=== PATIENT | female | born 1970 | race Caucasian/White ===

== ENCOUNTER → 2022-03-12 | Outpatient (CLI) | payer OTHER ==
[2022-03-12 14:13] LABS: Basophils # (A) 0.06 X 10*3/uL (0.00-0.10); Basophils % (A) 0.8 %; Eosinophils # (A) 0.16 X 10*3/uL (0.04-0.35); HCT 38.4 % (37.2-46.3); HGB 11.4 g/dL (12.0-15.0); Immature Grans, Automated 0.3 %; Lymphocytes # (A) 2.08 X 10*3/uL (0.90-5.00); Lymphocytes % (A) 26.4 %; MCH 26.9 pg (27.0-32.0); MCHC 29.7 g/dL (32.0-37.0); MCV 90.6 fL (80.0-97.0); Mean Platelet Volume 10.1 fL (9.5-12.2); Monocytes # (A) 0.46 X 10*3/uL (0.20-1.00); Monocytes % (A) 5.8 %; NRBC Per 100 WBC 0 /100 WBCS (0.0-0.0); Neutrophils # (A) 5.09 X 10*3/uL (1.80-7.70); Neutrophils % (A) 64.7 %; Platelet Count 271 X 10*3/uL (140-440); RBC 4.24 X 10*6/uL (4.10-5.20); RDW 13.8 % (11.5-14.5); WBC 7.87 X 10*3/uL (4.50-10.00)
[2022-03-12 18:26] LABS: Follicle Stimulating Hormone 4.1 mIU/mL
== END | disposition home or self-care (01) ==
LOC: LABPAT 10:27
PROVIDERS: ATTEND Obstetrics & Gynecology
DX: Z01.812 Encounter for preprocedural laboratory examination (principal)
CPT/HCPCS: 82670; 83001; 85025; 93005

== ENCOUNTER 2022-03-25 05:57 | Day surgery (SDC) | payer OTHER ==
[2022-03-21 11:57] VITALS: BMI 31.6
--- NOTE | 2022-03-22 17:13 | P.HPOB ---
History of Present Illness H&P Date: 03/22/22 Chief Complaint: Dysfunctional uterine bleeding, endometrial thickening on u ltrasound This patient is a pleasant 51 yr female who was referred to me for evaluation of irregular, heavy menstrual bleeding. Ultrasound demonstrated endometrial thickening to 1.7cm. She now presents for further evaluation by hysteroscopy and D&C. Review of Systems Genitourinary: Reports as per HPI, Reports abnormal vaginal bleeding Past Medical History Past Medical History: GERD/Reflux Additional Past Medical History / Comment(s): irregular and continual bleeding/clots with menses-none since 03-01-22. History of Any Multi-Drug Resistant Organisms: None Reported Past Surgical History: Adenoidectomy, Section, Cholecystectomy Additional Past Surgical History / Comment(s): c-sect x2 Past Anesthesia/Blood Transfusion Reactions: No Reported Reaction Past Psychological History: No Psychological Hx Reported Smoking Status: Never smoker Past Alcohol Use History: None Reported Past Drug Use History: None Reported - Past Family History Mother Family Medical History: Cancer Additional Family Medical History / Comment(s): breast Father Family Medical History: Cancer Additional Family Medical History / Comment(s): nonHodgekin's lymphoma Medications and Allergies Home Medications Medication Instructions Recorded Confirmed Type Omeprazole 20 mg PO QAM 03/21/22 03/21/22 History Allergies Allergy/AdvReac Type Severity Reaction Status Date / Time No Known Allergies Allergy Verified 03/21/22 11:48 Exam - OBG Physical Exam Abdomen: bowel sounds normal, no diffuse tenderness, no bruit present, no guarding noted, no hepatomegaly, no splenomegaly, no mass Vulva: both: normal Vagina: normal moisture, no discharge Cervix: no lesion, no discharge Uterus: normal size Assessment and Plan Assessment: This is a pleasant 51 yr female with dysfunctional uterine bleeding and endometrial thickening on pelvic ultrasound. Plan is hysteroscopy and dilation with curettage. I have discussed this surgery and risks with the patient including: infection, bleeding, and possible uterine perforation. All of her questions were answered and a written consent obtained. (1) Dysfunctional uterine bleeding Status: Acute Code(s): N93.8 - OTHER SPECIFIED ABNORMAL UTERINE AND VAGINAL B LEEDING SNOMED Code(s): 36624988143068 (2) Endometrial thickening on ultrasound Status: Acute Code(s): R93.89 - ABNORMAL FINDINGS ON DX IMAGING OF OTH BODY STRUCTURES SNOMED Code(s): 014963833
[~2022-03-25 05:57] MED LIST: DEXAMETHASONE SOD PHOSPHATE 4 MG/ML 1 ML VIAL IV ONE; HYDROmorphone 0.5 MG/0.5 ML SYRINGE IVP PRN; LACTATED RINGERS 1,000 ML IV SCH; LIDOCAINE 1% (10MG/ML) FOR IV START INTRADERMA PRN; ONDANSETRON 4 MG/2 ML VIAL IVP ONE; Pre Op ABX Message 1 EACH MISC MISCELLANE ONE; SCOPOLAMINE 1 MG/72 HR PATCH TRANSDERM ONE
[2022-03-25] MEDS ORDERED: fentaNYL (PF) 50 MCG/ML 2 ML AMP ONE (06:50)
[2022-03-25] MEDS ORDERED: MIDAZOLAM 2 MG/2 ML VIAL ONE (06:50)
[2022-03-25] MEDS ORDERED: LIDOCAINE 2% INJ 20 MG/ML (2 ML VIAL) ONE (06:50)
[2022-03-25] MEDS ORDERED: KETOROLAC 15 MG/ML 1 ML VIAL ONE (06:50)
[2022-03-25] MEDS ORDERED: SUCCINYLCHOLINE CHLORIDE 200 MG/10 ML VIAL IV ONE (06:50)
[2022-03-25] MEDS ORDERED: PROPOFOL 10 MG/ML 20 ML VIAL IV ONE (06:50)
--- NOTE | 2022-03-25 07:24 | P.OP ---
Date of Procedure: 03/25/22 Preoperative Diagnosis: #1: Dysfunctional uterine bleeding. #2: Thickened endometrium on ultrasound Postoperative Diagnosis: Same Procedure(s) Performed: #1: Hysteroscopy. 2: Dilation and curettage Anesthesia: [facility] Surgeon: Campbell Nichols Estimated Blood Loss (ml): 20 Urine output (ml): 20 Pathology: other (Uterine curettings) Condition: stable Disposition: PACU Indications for Procedure: Please see dictated H&P for intimate details of this patient's admission. Brief summary this is a pleasant 51-year-old female who was referred to [facility] for evaluation of dysfunctional bleeding and thickening of the endometrium on transvaginal ultrasound. Patient is presenting for hysteroscopy D&C for further evaluation. Patient understands this surgery and risks and risks of infection, bleeding, possible uterine perforation. All the patient's questions are answered and a written consent is obtained. Operative Findings: This patient had a normal-appearing endometrial cavity without evidence of polyps or fibroids Description of Procedure: This patient is taken to the operative room where she is laid in supine position. She undergoes general endotracheal anesthesia without incident. With an adequate level of anesthesia she's placed in dorsal lithotomy position. She has a vaginal perineal prep and drape. Examination under anesthesia shows a mid position uterus of normal size. Weighted speculum placed in posterior vagina. Bladder is drained for 20 mL of clear urine. I grabbed the anterior lip of the cervix with an Allis clamp. The uterus is gently sounded to 8.5 cm. Gentle dilation is then done to allow the hysteroscope easily and uterine cavity. Hysteroscopy is performed and the uterine cavity endocervix are visualized. I see no evidence of a fibroid or polyp. With this done the hysteroscope was removed. Cervix is dilated more to allow the polyp forceps into the endometrial cavity. These are placed no polyp was removed. A vigorous but gentle 4 quadrant curettage is then done and this tissue sent off separately to the pathologist. This done the procedure is ended. The Allis clamp and weighted speculum were removed. All counts are correct 3. There are no complications. Patient is awakened from anesthesia and taken to the recovery room in satisfactory condition.
[2022-03-25 07:30] VITALS: TEMP 97.2
[2022-03-25 07:40] VITALS: RESP 16
[2022-03-25 08:24] VITALS: BP 108/70; PULSE 72
== END 2022-03-25 09:11 | disposition home or self-care (01) ==
LOC: OR 05:57
PROVIDERS: ATTEND Obstetrics & Gynecology
DX: N93.8 Other specified abnormal uterine and vaginal bleeding (principal); R93.89 Abnormal findings on diagnostic imaging of other specified body structures; K21.9 Gastro-esophageal reflux disease without esophagitis; Z79.899 Other long term (current) drug therapy; Z90.89 Acquired absence of other organs; Z98.891 History of uterine scar from previous surgery; Z90.49 Acquired absence of other specified parts of digestive tract; Z80.3 Family history of malignant neoplasm of breast; Z80.7 Family history of other malignant neoplasms of lymphoid, hematopoietic and related tissues
CPT/HCPCS: 81025; 88305; 58558; J2250; J0330; J1100; J2405; J3010; J1885; J2704; J2001